=== PATIENT | male | born 1990 | race Caucasian/White ===

== ENCOUNTER 2017-02-12 21:11 | Emergency (ER) | payer MEDICAID, OTHER ==
[~2017-02-12] VITALS: Ht 185.4 cm; Wt 109.5 kg
[2017-02-12 21:25] VITALS: Ht 185.4 cm; Wt 109.5 kg
[2017-02-13 00:06] LABS: ADD SCAN DIFF NO
[2017-02-13 00:08] LABS: BASOPHIL # 0.1 10^3/ul (0.0-0.1); BASOPHILS % 0.8 % (0.0-2.0); EOSINOPHILS # 0.1 10^3/ul (0.0-0.5); EOSINOPHILS % 0.4 % (0.0-7.0); HEMATOCRIT 40.1 % (42.0-52.0); HEMOGLOBIN 13.7 g/dl (14.0-18.0); LYMPHOCYTES # 4.1 10^3/ul (0.8-2.9); LYMPHOCYTES % 34.1 % (15.0-51.0); MEAN CORPUSCULAR HEMOGLOBIN 31.9 pg (29.0-33.0); MEAN CORPUSCULAR HGB CONC 34.2 g/dl (32.0-37.0); MEAN CORPUSCULAR VOLUME 93.5 fl (82.0-101.0); MEAN PLATELET VOLUME 10.2 fl (7.4-10.4); MONOCYTE # 0.9 10^3/ul (0.3-0.9); MONOCYTES % 7.6 % (0.0-11.0); NEUTROPHIL # 6.8 10^3/ul (1.6-7.5); NEUTROPHILS % 56.8 % (39.0-77.0); PLATELET COUNT 395 10^3/UL (140-415); RED BLOOD COUNT 4.29 10^6/ul (4.70-6.10); RED CELL DISTRIBUTION WIDTH 13.3 % (11.5-14.5); WHITE BLOOD COUNT 11.9 10^3/ul (4.8-10.8)
[2017-02-13 00:34] LABS: ALBUMIN 3.9 g/dl (3.3-4.9)
[2017-02-13 00:35] LABS: CHLORIDE 106 mmol/L (97-110); POTASSIUM 3.9 mmol/L (3.5-5.1); SODIUM 143 mmol/L (135-144)
[2017-02-13 00:37] LABS: ALANINE AMINOTRANSFERASE 28 IU/L (13-69); ALBUMIN/GLOBULIN RATIO 1.34; ALKALINE PHOSPHATASE 106 IU/L (42-121); ANION GAP 20 (8-16); ASPARTATE AMINO TRANSFERASE 33 IU/L (15-46); BLOOD UREA NITROGEN 13 mg/dl (7-20); CARBON DIOXIDE 21 mmol/L (21-31); CREATININE 0.82 mg/dl (0.61-1.24); TOTAL PROTEIN 6.8 g/dl (6.1-8.1)
[2017-02-13 00:38] LABS: CALCIUM 8.4 mg/dl (8.4-10.2); GLUCOSE 120 mg/dl (70-220)
[2017-02-13 00:56] LABS: ACETAMINOPHEN < 10.0 ug/ml (10.0-30.0); SALICYLATE < 1.0 mg/dl (5.0-30.0)
[2017-02-13 01:11] LABS: ADD UMIC NO; URINE BILIRUBIN (Dip) NEGATIVE (NEGATIVE); URINE BLOOD (Dip) NEGATIVE (NEGATIVE); URINE COLOR LT. YELLOW (YELLOW); URINE GLUCOSE (Dip) NEGATIVE (NEGATIVE); URINE KETONES (Dip) TRACE (NEGATIVE); URINE LEUKOCYTE ESTERASE (Dip) NEGATIVE (NEGATIVE); URINE NITRITE (Dip) NEGATIVE (NEGATIVE); URINE TOTAL PROTEIN (Dip) NEGATIVE (NEGATIVE); URINE UROBILINOGEN (Dip) 0.2 E.U./dL (0.1-1.0)
--- NOTE | 2017-02-13 01:12 | ERA ---
ER Documentation Chief Complaint Date/Time DATE: 02/13/17 TIME: 01:11 Chief Complaint SUICIDAL. WANTS TO JUMP OFF [place]ONTO [place]LINE HERE IN [place]. PARANOID HPI This is a patient states that he is suicidal. He says he wants to jump off a bridge. Patient has history of schizophrenia. ROS All systems reviewed and are negative except as per history of present illness. Medications Home Meds No Active Prescriptions or Reported Meds Allergies Allergies: Coded Allergies: No Known Allergy (Unverified , 04/18/16) PMhx/Soc Medical and Surgical Hx: pt denies Surgical Hx History of Surgery: No Anesthesia Reaction: No Hx Neurological Disorder: No Hx Respiratory Disorders: No Hx Cardiac Disorders: No Hx Psychiatric Problems: Yes (manic depressive, suicide attempt 2008) Hx Miscellaneous Medical Probl: No Hx Alcohol Use: Yes (drank 15 tallboy beers today; usually 17 daily) Hx Substance Use: Yes (history of heroin use) Hx Tobacco Use: Yes Smoking Status: Never smoker Physical Exam Vitals Vital Signs Date Time Temp Pulse Resp B/P Pulse Ox O2 Delivery O2 Flow Rate FiO2 02/12/17 21:25 97.4 115 22 137/98 96 Physical Exam Const: [] Head: Atraumatic Eyes: Normal Conjunctiva ENT: Normal External Ears, Nose and Mouth. Neck: Full range of motion..~ No meningismus. Resp: Clear to auscultation bilaterally Cardio: Regular rate and rhythm, no murmurs Abd: Soft, non tender, non distended. Normal bowel sounds Skin: No petechiae or rashes Back: No midline or flank tenderness Ext: No cyanosis, or edema Neur: Awake and alert Psych: Normal Mood and Affect Result Diagram: 02/12/17 0000 02/12/17 0000 Results 24 hrs Laboratory Tests Test 02/12/17 00:00 White Blood Count 11.910^3/ul Red Blood Count 4.2910^6/ul Hemoglobin 13.7g/dl Hematocrit 40.1% Mean Corpuscular Volume 93.5fl Mean Corpuscular Hemoglobin 31.9pg Mean Corpuscular Hemoglobin Concent 34.2g/dl Red Cell Distribution Width 13.3% Platelet Count 03838^3/UL Mean Platelet Volume 10.2fl Neutrophils % 56.8% Lymphocytes % 34.1% Monocytes % 7.6% Eosinophils % 0.4% Basophils % 0.8% Nucleated Red Blood Cells % 0.0/100WBC Neutrophils # 6.810^3/ul Lymphocytes # 4.110^3/ul Monocytes # 0.910^3/ul Eosinophils # 0.110^3/ul Basophils # 0.110^3/ul Nucleated Red Blood Cells # 0.010^3/ul Sodium Level 143mmol/L Potassium Level 3.9mmol/L Chloride Level 106mmol/L Carbon Dioxide Level 21mmol/L Anion Gap 20 Blood Urea Nitrogen 13mg/dl Creatinine 0.82mg/dl Glucose Level 120mg/dl Calcium Level 8.4mg/dl Total Bilirubin 0.0mg/dl Direct Bilirubin 0.00mg/dl Indirect Bilirubin 0.0mg/dl Aspartate Amino Transf (AST/SGOT) 33IU/L Alanine Aminotransferase (ALT/SGPT) 28IU/L Alkaline Phosphatase 106IU/L Total Protein 6.8g/dl Albumin 3.9g/dl Globulin 2.90g/dl Albumin/Globulin Ratio 1.34 Salicylates Level < 1.0mg/dl Acetaminophen Level < 10.0ug/ml Ethyl Alcohol Level 103.0mg/dl Procedures/MDM Patient's behavioral symptoms have stabilized while in the department. Patient is medically cleared and appropriate for psychiatric evaluation and work up. No e/o neurologic, toxic, infectious, or metabolic cause. Departure Diagnosis: Primary Impression: Suicide threat or attempt Condition: Stable ALEC ZARAGOZA Feb 13, 2017 01:12
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
[2017-02-13] MEDS ORDERED: LORAZEPAM 2 MG INJ IM ONE (02:00)
[2017-02-13] MEDS ORDERED: DIPHENHYDRAMINE 50 MG INJ IM ONE (02:00)
[2017-02-13] MEDS ORDERED: HALOPERIDOL 5 MG INJ IM ONE (02:00)
[2017-02-13 02:08] LABS: BENZODIAZEPINES Positive (NEGATIVE)
[2017-02-13 02:25] LABS: BARBITURATES Negative (NEGATIVE); CANNABINOIDS Negative (NEGATIVE); COCAINE Negative (NEGATIVE); OPIATES Negative (NEGATIVE)
[2017-02-13] MEDS ORDERED: FAMOTIDINE 20 MG TAB PO ONE (03:00)
[2017-02-13 10:33] VITALS: BP 132/86; PULSE 69; RESP 18; TEMP 98.1
== END 2017-02-13 10:56 ==
LOC: E/R 21:11
DX: F22 Delusional disorders (principal); R45.851 Suicidal ideations; Z87.891 Personal history of nicotine dependence
CPT/HCPCS: 36415; 80053; 80306; 80307; 81003; 85025; 96372; J1200; J1630; J2060; Z7502; Z7610

== ENCOUNTER 2017-04-09 22:45 | Emergency (ER) | payer SELFPAY ==
[~2017-04-09] VITALS: Ht 185.4 cm; Wt 108.5 kg
[2017-04-09 22:49] VITALS: Ht 185.4 cm; Wt 108.5 kg
== END 2017-04-09 23:48 | disposition left against medical advice (07) ==
LOC: FTE 22:45
DX: Z53.21 Procedure and treatment not carried out due to patient leaving prior to being seen by health care provider (principal)